=== PATIENT | female | born 2000 | race Two or more races ===

== ENCOUNTER 2022-09-29 05:50 | Inpatient (IN) | payer BC ==
[2022-09-29] MEDS ORDERED: CITRIC ACID/SODIUM CITRATE 30 ML UNIT-DOSE CUP PO ONE (06:20)
[2022-09-29] MEDS ORDERED: ELECTROLYTE-148 SOLN 500 ML IV ONE (06:20)
[2022-09-29] MEDS ORDERED: ELECTROLYTE-148 SOLN 1,000 ML IV SCH (06:20)
[2022-09-29 06:48] VITALS: BMI 30.2
[2022-09-29] MEDS ORDERED: ONDANSETRON 4 MG/2 ML VIAL IVPUSH PRN (09:33)
[2022-09-29] MEDS ORDERED: morphine SULFATE/PF 1 MG/2 ML (2cc Syringe - QUVA) EP ONE (09:33)
[2022-09-29] MEDS ORDERED: METHYLERGONOVINE MALEATE 0.2 MG/1 ML AMP IM PRN (09:38)
[2022-09-29] MEDS ORDERED: IBUPROFEN 800 MG/8 ML IJ IVPB PRN (09:38)
[2022-09-29] MEDS ORDERED: OXYTOCIN 20 UNITS in 0.9% NS 20 UNIT/1,000 ML INFUS.BAG IV ONE (10:58)
[2022-09-29] MEDS: OXYTOCIN 20 UNITS in 0.9% NS 20 UNIT/1,000 ML INFUS.BAG IV SCH ×2 (11:00→20:05)
[2022-09-29] MEDS: PRENATAL VITAMINS W/ FOLIC ACID TABLET (FP) PO SCH (11:09)
[2022-09-29] MEDS: FERROUS SO4 325 MG TABLET (FP) PO SCH (17:51)
[2022-09-29] MEDS ORDERED: oxyCODONE HCL 5 MG TABLET PO PRN (21:39)
[2022-09-30 06:11] VITALS: RESP 18
[2022-09-30 06:47] LABS: HEMATOCRIT 32.4 % (32.4-45.2); HEMOGLOBIN 10.6 GM/dL (10.7-15.3); MCH 27.5 pg (25.7-33.7); MCHC 32.9 g/dl (32.0-36.0); MEAN CELL VOLUME 83.8 fl (80-96); MEAN PLT VOLUME 11.2 fl (7.5-11.1); PLATELET COUNT 175 10^3/uL (134-434); RBC 3.86 M/mm3 (3.60-5.2); RDW 13.4 % (11.6-15.6); WHITE BLOOD COUNT 22.7 K/mm3 (4.0-10.0)
[2022-09-30] MEDS: FERROUS SO4 325 MG TABLET (FP) PO SCH ×2 (08:35→18:11)
[2022-09-30] MEDS: ACETAMINOPHEN 325 MG TABLET (FP) PO PRN ×2 (08:35→18:11)
[2022-09-30] MEDS: SIMETHICONE 80 MG TAB.CHEW (FP) PO PRN ×2 (08:36→20:32)
[2022-09-30 08:57] LABS: ANISOCYTOSIS 1+; MACROCYTOSIS 0
[2022-09-30] MEDS ORDERED: BISACODYL 10 MG SUPP.RECT RC PRN (09:39)
[2022-09-30] MEDS: PRENATAL VITAMINS W/ FOLIC ACID TABLET (FP) PO SCH (10:14)
[2022-09-30] MEDS: IBUPROFEN 600 MG TABLET (FP) PO PRN ×2 (12:02→20:32)
[2022-09-30 22:24] VITALS: TEMP 98.7
[2022-10-01] MEDS: SIMETHICONE 80 MG TAB.CHEW (FP) PO PRN ×2 (01:57→09:10)
[2022-10-01] MEDS: IBUPROFEN 600 MG TABLET (FP) PO PRN ×2 (01:57→09:10)
[2022-10-01] MEDS: PRENATAL VITAMINS W/ FOLIC ACID TABLET (FP) PO SCH (09:10)
[2022-10-01] MEDS: FERROUS SO4 325 MG TABLET (FP) PO SCH (09:10)
[2022-10-01 10:24] VITALS: BP 89/60; PULSE 98
== END 2022-10-01 14:10 | disposition home or self-care (01) | DRG 540 ==
LOC: JLDR 05:50 → J3W 11:15
PROVIDERS: ADMIT Obstetrics & Gynecology; ATTEND Obstetrics & Gynecology
PROC: 10D00Z1 Extraction of Products of Conception, Low, Open Approach (ICD-10-PCS; principal; 2022-09-29)
DX: O34.219 Maternal care for unspecified type scar from previous cesarean delivery (principal); Z3A.39 39 weeks gestation of pregnancy; Z37.0 Single live birth
CPT/HCPCS: 36415; 71046-TC-FY; 85025; 88307-TC

== ENCOUNTER 2024-09-25 10:29 | Emergency (ER) | payer OTHER ==
[2024-09-25 10:48] VITALS: BP 108/63; PULSE 89; RESP 20; TEMP 98.8; BMI 29.0
[2024-09-25] MEDS ORDERED: ACETAMINOPHEN 500 MG TABLET (FP) ONE (11:11)
[2024-09-25] MEDS ORDERED: guaiFENesin/D-METHORPHAN HB 10 ML UNIT-DOSE CUPS ONE (11:11)
[2024-09-25] MEDS: ACETAMINOPHEN 500 MG TABLET (FP) PO ONE (11:21)
[2024-09-25] MEDS: guaiFENesin/D-METHORPHAN HB 10 ML UNIT-DOSE CUPS PO ONE (11:21)
[2024-09-25 13:17] LABS: HCV DIAGNOSTIC IN-HOUSE W/RFLX NON-REACTIVE (NONREACTIVE); HIV INTERPRETATION NEGATIVE (NEGATIVE)
== END 2024-09-25 12:06 | disposition home or self-care (01) ==
LOC: JERFT 10:29
DX: U07.1 COVID-19 (principal); J06.9 Acute upper respiratory infection, unspecified; R09.81 Nasal congestion; R05.9 Cough, unspecified; R51.9 Headache, unspecified; R06.7 Sneezing
CPT/HCPCS: 0241U-QW; 36415; 86803; 87389; 99283-25